=== PATIENT | male | born 1950 | race Caucasian/White ===

== ENCOUNTER → 2023-10-24 09:12 | Outpatient (BNVA) | payer MEDICARE, OTHER, SELFPAY | PROVIDERS: PCP Nurse Practitioner; Visit Provider Nurse Practitioner Family | DX: L57.0 Actinic keratosis (principal); L98.1 Factitial dermatitis; L81.0 Postinflammatory hyperpigmentation; L81.4 Other melanin hyperpigmentation; Z85.828 Personal history of other malignant neoplasm of skin | CPT/HCPCS: 17000; 99203 ==

== ENCOUNTER → 2023-10-31 08:26 | Outpatient (BNVA) | payer MEDICARE, OTHER, SELFPAY | PROVIDERS: PCP Nurse Practitioner; Visit Provider Physician Assistant | DX: M19.012 Primary osteoarthritis, left shoulder; M19.011 Primary osteoarthritis, right shoulder; M75.42 Impingement syndrome of left shoulder; M75.41 Impingement syndrome of right shoulder | CPT/HCPCS: 20610; 73030; 99203; J3301 ==

== ENCOUNTER → 2024-04-17 08:48 | Outpatient (BNVA) | payer MEDICARE, OTHER, SELFPAY | PROVIDERS: PCP Nurse Practitioner; Visit Provider Physician Assistant | DX: M75.41 Impingement syndrome of right shoulder (principal); M75.42 Impingement syndrome of left shoulder; M19.011 Primary osteoarthritis, right shoulder; M19.012 Primary osteoarthritis, left shoulder | CPT/HCPCS: 20610; 73030; 99213; J3301 ==

== ENCOUNTER → 2024-07-14 09:16 | Outpatient (BNVA) | payer MEDICARE, OTHER, SELFPAY | PROVIDERS: PCP Nurse Practitioner; Visit Provider Nurse Practitioner | DX: E29.1 Testicular hypofunction (principal) | CPT/HCPCS: 84403 ==

== ENCOUNTER → 2024-07-17 08:41 | Outpatient (BNVA) | payer MEDICARE, OTHER, SELFPAY | PROVIDERS: PCP Nurse Practitioner; Visit Provider Nurse Practitioner | DX: E29.1 Testicular hypofunction (principal); Z76.89 Persons encountering health services in other specified circumstances | CPT/HCPCS: 84402 ==

== ENCOUNTER → 2024-07-21 09:24 | Outpatient (BNVA) | payer MEDICARE, OTHER, SELFPAY | PROVIDERS: PCP Nurse Practitioner; Visit Provider Student in an Organized Health Care Education/Training Program | DX: M19.011 Primary osteoarthritis, right shoulder (principal); M19.012 Primary osteoarthritis, left shoulder | CPT/HCPCS: 99214 ==

== ENCOUNTER → 2024-08-07 08:38 | Outpatient (BNVA) | payer MEDICARE, OTHER, SELFPAY | PROVIDERS: PCP Nurse Practitioner; Visit Provider Student in an Organized Health Care Education/Training Program | DX: M75.41 Impingement syndrome of right shoulder (principal); M75.42 Impingement syndrome of left shoulder; M19.011 Primary osteoarthritis, right shoulder; M19.012 Primary osteoarthritis, left shoulder | CPT/HCPCS: 20610; 77002; J3301; J9999 ==

== ENCOUNTER → 2024-09-17 15:01 | Outpatient (BNVA) | payer MEDICARE, OTHER, SELFPAY | PROVIDERS: PCP Nurse Practitioner; Visit Provider Nurse Practitioner | DX: I10 Essential (primary) hypertension (principal); E11.9 Type 2 diabetes mellitus without complications | CPT/HCPCS: 80053; 80061; 83036; 85025 ==

== ENCOUNTER → 2024-10-23 09:07 | Outpatient (BNVA) | payer MEDICARE, OTHER, SELFPAY | PROVIDERS: PCP Nurse Practitioner; Visit Provider Nurse Practitioner Family | DX: L82.1 Other seborrheic keratosis (principal); L81.4 Other melanin hyperpigmentation; D18.01 Hemangioma of skin and subcutaneous tissue; L81.0 Postinflammatory hyperpigmentation; Z08 Encounter for follow-up examination after completed treatment for malignant neoplasm; Z85.828 Personal history of other malignant neoplasm of skin; L57.0 Actinic keratosis | CPT/HCPCS: 17000; 99213 ==

== ENCOUNTER → 2024-11-10 10:22 | Outpatient (BNVA) | payer MEDICARE, OTHER, SELFPAY | PROVIDERS: PCP Nurse Practitioner; Visit Provider Student in an Organized Health Care Education/Training Program | DX: M19.011 Primary osteoarthritis, right shoulder (principal); M19.012 Primary osteoarthritis, left shoulder; M75.41 Impingement syndrome of right shoulder; M75.42 Impingement syndrome of left shoulder | CPT/HCPCS: 99213 ==

== ENCOUNTER 2024-11-13 08:47 | Outpatient (CLI) | payer MEDICARE, OTHER, SELFPAY ==
--- NOTE | 2024-11-13 09:30 | MR_ITS ---
WS: [id number] MRI RIGHT SHOULDER NONCONTRAST TECHNIQUE: Sagittal T2, coronal T1, T2 and proton density imaging. Axial gradient PDE imaging. CLINICAL INFORMATION: eval rotator cuff COMPARISON: None. FINDINGS: Advanced arthritis AC joint. Fluid and edema at the AC joint. Subacromial space preserved. Diffuse degenerative edema in the humeral head with subchondral cystic changes at the greater tuberosity. Small joint effusion. Subcoracoid effusion. Diffuse tendinopathy supraspinatus. Diffuse marked thickening with tendinopathy involving the intra-articular biceps tendon. Tendinopathy infraspinatus which appears intact. Teres minor appears intact. Tendinopathy subscapularis tendon which appears intact. Biceps tendon intact within the bicipital groove with medial subluxation along the proximal bicipital groove. Advanced joint space narrowing glenohumeral articulation with hypertrophic changes. Hypertrophic changes along the humeral neck. MR/MR shoulder RT wo con* [id number] IMPRESSION: 1. Marked tendinopathy involving the supraspinatus which appears intact. Tendi nopathy infraspinatus and subscapularis tendons. 2. Diffuse thickening with tendinopathy involving the intra-articular biceps t endon. 3. Biceps tendon appears intact within the bicipital groove with medial sublux ation along the proximal biceps tendon. 4. Advanced degenerative narrowing glenohumeral articulation. 5. Small joint effusion with fluid along the biceps tendon sheath and subcorac oid bursa. 6. Diffuse edema within the humeral head.
== END 2024-11-13 08:48 | disposition home or self-care (01) ==
LOC: RAD 08:48
PROVIDERS: PCP Nurse Practitioner; Visit Provider Student in an Organized Health Care Education/Training Program
DX: M75.41 Impingement syndrome of right shoulder (principal); M19.011 Primary osteoarthritis, right shoulder; M19.012 Primary osteoarthritis, left shoulder; M67.813 Other specified disorders of tendon, right shoulder
CPT/HCPCS: 73221

== ENCOUNTER 2024-11-26 09:16 | Outpatient (CLI) | payer MEDICARE, OTHER, SELFPAY ==
--- NOTE | 2024-11-26 09:22 | MR_ITS ---
WS: [id number] MRI LEFT SHOULDER NONCONTRAST TECHNIQUE: Sagittal T2, coronal T1, T2 and proton density imaging. Axial gradient PDE imaging. CLINICAL INFORMATION: eval rotator cuff FINDINGS: Advanced arthritis AC joint with associated fluid and edema. Subchondral cystic change involving the distal clavicle and acromion. Osseous fragmentation of the acromion may be due to chronic osteoarthritis, prior injury or prior surgery. Subchondral cystic change greater tuberosity with intraosseous cyst measuring 2.1 x 2.2 cm. Small amount of subacromial subdeltoid fluid. Fluid in the subcoracoid bursa. Calcified loose bodies at the supraspinatus insertion. Chronic thinning of the supraspinatus with tendinopathy. Tendinopathy infraspinatus. Normal teres minor. Tendinopathy subscapularis tendon. Intra-articular biceps tendon appears intact. Diffuse increased T2 signal abnormality involving the intra-articular biceps tendon compatible with tendinopathy. Advanced degenerative narrowing of the glenohumeral articulation with hypertrophic spurring about the glenoid and humeral neck. Hill-Sachs type deformity at the level of the coracoid. MR/MR shoulder LT wo con* [id number] IMPRESSION: 1. Advanced degenerative arthritis AC joint with fragmentation of the acromion . Mild narrowing of the subacromial space with slight impingement on the supras pinatus. 2. Hill-Sachs deformity with advanced subchondral cystic change involving the greater tuberosity with intraosseous humeral head cyst measuring 2.1 x 2.0 cm. 3. Calcified loose bodies at the supraspinatus insertion. Tendinopathy suprasp inatus and infraspinatus. 4. Tendinopathy subscapularis tendon. 5. Biceps tendon intact in the bicipital groove. 6. Marked tendinopathy intra-articular biceps tendon. 7. Advanced degenerative narrowing of the glenohumeral articulation with hyper trophic spurring. 8. Small joint and subcoracoid effusion.
== END 2024-11-26 09:17 | disposition home or self-care (01) ==
LOC: RAD 09:17
PROVIDERS: PCP Nurse Practitioner; Visit Provider Student in an Organized Health Care Education/Training Program
DX: M75.42 Impingement syndrome of left shoulder (principal); M19.012 Primary osteoarthritis, left shoulder; M67.812 Other specified disorders of synovium, left shoulder; M77.8 Other enthesopathies, not elsewhere classified
CPT/HCPCS: 73221

== ENCOUNTER → 2024-12-16 08:52 | Outpatient (BNVA) | payer MEDICARE, OTHER, SELFPAY | PROVIDERS: PCP Nurse Practitioner; Visit Provider Student in an Organized Health Care Education/Training Program | DX: M19.011 Primary osteoarthritis, right shoulder (principal); M19.012 Primary osteoarthritis, left shoulder | CPT/HCPCS: 99214 ==

== ENCOUNTER 2024-12-29 09:47 | Outpatient (CLI) | payer MEDICARE, OTHER, SELFPAY ==
--- NOTE | 2024-12-29 10:00 | CTR_ITS ---
PROCEDURE INFORMATION: Exam: CT Right Upper Extremity Without Contrast, Shoulder Exam date and time: 12/29/2024 10:22 AM Age: 74 years old Clinical indication: Pain; Prior surgery; Surgery date: 6+ months; Surgery type: Right shoulder; Additional info: Right reverse total shoulder arthroplasty, CT for surgical planning TECHNIQUE: Imaging protocol: Computed tomography of the right upper extremity without contrast. Exam focused on the shoulder. Radiation optimization: All CT scans at this facility use at least one of these dose optimization techniques: automated exposure control; mA and/or kV adjustment per patient size (includes targeted exams where dose is matched to clinical indication); or iterative reconstruction. COMPARISON: MR shoulder RT wo con* [id number] 11/13/2024 9:26 AM RADIATION DOSE METRICS: Total DLP (mGy-cm): 528.5 FINDINGS: Bones/joints: Glenohumeral joint demonstrates severe joint space loss, subchondral sclerosis, moderate marginal osteophytes and remodeling of the glenoid fossa and humeral head. Humeral head is flattened. Subcortical and subchondral cysts involve the superolateral humeral head and greater tuberosity . Small sclerotic densities noted in the humeral head and humeral shaft favor bone islands. There is a truncated appearance to the acromion, suggesting prior acromioplasty. The AC joint is widened to 9 mm, indicating chronic ligament degeneration. No acute fracture or dislocation. Joint fluid extends along the bicipital tendon. Loculated subcoracoid bursal collections are again noted. Previous acromioplasty. Soft tissues: Normal. CT/CT shoulder RT wo con* [id number] IMPRESSION: 1. Severe glenohumeral degenerative changes. 2. Moderate acromioclavicular degenerative changes. 3. Glenohumeral joint effusion with loculated subcoracoid components.
== END 2024-12-29 09:48 | disposition home or self-care (01) ==
LOC: RAD 09:49
PROVIDERS: PCP Nurse Practitioner; Visit Provider Student in an Organized Health Care Education/Training Program
DX: M19.011 Primary osteoarthritis, right shoulder (principal); M25.411 Effusion, right shoulder; M25.711 Osteophyte, right shoulder
CPT/HCPCS: 73200

== ENCOUNTER → 2025-01-07 15:26 | Outpatient (BNVA) | payer MEDICARE, OTHER, SELFPAY | PROVIDERS: PCP Nurse Practitioner; Visit Provider Family Medicine | DX: Z01.818 Encounter for other preprocedural examination (principal); M19.011 Primary osteoarthritis, right shoulder; M25.411 Effusion, right shoulder; I10 Essential (primary) hypertension; E11.9 Type 2 diabetes mellitus without complications; Z79.84 Long term (current) use of oral hypoglycemic drugs; E78.5 Hyperlipidemia, unspecified; N40.0 Benign prostatic hyperplasia without lower urinary tract symptoms | CPT/HCPCS: 80053; 83036; 85025 ==

== ENCOUNTER 2025-01-28 14:19 | Observation (INO) | payer MEDICARE, OTHER, SELFPAY ==
[2025-01-28] VITALS (35 sets, daily range): BP systolic 129–171; BP diastolic 30–101; PULSE 67–102; RESP 11–20; TEMP 36.4–36.9; O2SAT 89–97; BMI 29.5
--- NOTE | 2025-01-28 06:16 | ANES.PREANE2 ---
Pre-Anesthetic Assessment Height/Weight: Height 6 ft 2 in Temp Pulse Resp BP Pulse Ox O2 Del Method 97.5 F L 73 18 165/101 96 Room Air 01/28/25 06:12 01/28/25 06:12 01/28/25 06:12 01/28/25 06:12 01/28/25 06:12 01/28/25 06:12 Preop Diagnosis: Shoulder arthritis Operation Date: 01/28/25 07:00 Proposed Procedures p RIGHT Total Reverse Shoulder Arthroplasty(Right) - Eder Elliott, DO Was Beta Tabatha taken within 24 hours: N/A Was Clonidine taken within 24 hours: N/A Last intake: Intake Last Liquid Date 01/27/25 Last Liquid Time 20:00 Last Solid Date 01/27/25 Last Solid Time 20:00 Social No alcohol and No tobacco Exam alert, oriented x 3, clear to auscultation bilaterally and regular rate & rhythm Airway Submandibular: within normal limits Cervical ROM: within normal limits Mallampati: Class III Comments: Comments: Patient has all implanted teeth Anesthetic Plan ASA status: 3 Anesthesia: General and Regional (specify below) Other: No prior issues with anesthesia NPO since yesterday evening History of type 2 diabetes, well-controlled. No insulin Hypertension on amlodipine. Taken yesterday. Preop BP 165/101 Recent labs reviewed acceptable for procedure today Plan for GETA with peripheral nerve block Medications/Allergies Home Medications ?Medication ?Instructions ?Recorded ?Confirmed ?Last Taken ?Type morphine 15 mg immediate release 15 mg PO BID PRN Pain 09/10/23 01/27/25 01/26/25 History tablet hydrocodone 10 mg-acetaminophen 1 tab PO Q6H PRN pain 5 days #20 10/31/23 01/28/25 01/28/25 02:30 Rx 325 mg tablet tabs triamcinolone acetonide 0.1 % 1 applic topical BID #30 grams 09/17/24 01/20/25 Unknown Rx topical cream testosterone cypionate 200 mg/mL 200 mg IM Q14D #2 mL 11/04/24 01/20/25 Unknown Rx intramuscular oil venlafaxine 75 mg capsule,extended See Rx Instructions .Route 12/01/24 01/20/25 Unknown Rx release 24 hr .COMPLEX #90 caps rosuvastatin 10 mg tablet 10 mg PO DAILY #90 tabs 12/30/24 01/27/25 01/27/25 Rx amlodipine 5 mg tablet 5 mg PO DAILY #30 tabs 01/20/25 01/27/25 01/27/25 Rx empagliflozin 10 mg tablet 10 mg PO DAILY 01/27/25 01/27/25 01/27/25 History (Jardiance) metformin 1,000 mg tablet 1,000 mg PO BID 01/27/25 01/27/25 01/27/25 History pantoprazole 40 mg tablet,delayed 40 mg PO PRN PRN Heartburn 01/27/25 01/27/25 01/26/25 History release tamsulosin 0.4 mg capsule 0.4 mg PO BID 01/27/25 01/27/25 01/27/25 History Allergies Allergy/AdvReac Type Severity Reaction Status Date / Time lisinopril AdvReac Mild ADR-Cough Verified 01/28/25 06:07 [facility] Anesthesia Social History Smoking and tobacco/nicotine status: never used tobacco/nicotine Data Anesthesia 01/28/25 06:20 01/28/25 06:20
[2025-01-28 06:35] LABS: Hematocrit 54.0 % (37-53); Hemoglobin 18.40 g/dL (11.27-16.99); Mean Corpuscular HGB Conc 34.1 g/dL (30-55); Mean Corpuscular Hemoglobin 32.7 pg (27-33); Mean Corpuscular Volume 96.1 fl (82-101); Nucleated Red Blood Cells % 0 %; Platelet Count 151 10^3/cmm (157-399); Red Blood Count 5.62 10^6/uL (3.85-5.65); White Blood Count 9.83 10^3/uL (3.29-11.43)
[2025-01-28 06:51] LABS: Anion Gap 14.8 (5-19); Blood Urea Nitrogen 11 mg/dL (8-23); Calcium 8.9 mg/dL (8.5-10.5); Carbon Dioxide 26 mmol/L (22-29); Chloride 101 mmol/L (98-107); Creatinine Clr Calc Pharmacy 102.7478; Glucose 146 mg/dL (65-115); Osmolality Calculated 286 mOsm/kg (285-295); Potassium 4.8 mmol/L (3.5-5.1); Sodium 137 mmol/L (136-145)
[2025-01-28] MEDS: acetaminophen 1,000 MG/100 ML PIGGYBACK 400 MG IV (06:52)
--- NOTE | 2025-01-28 06:54 | W.PM.OPSFHP ---
Same Day Surgery H&P Indication for Procedure/HPI DATE OF PROCEDURE: January 28, 2025 CHIEF COMPLAINT/INDICATIONFOR SURGICAL PROCEDURE: Right shoulder degenerative joint disease PREOP DIAGNOSIS: Right shoulder degenerative joint disease PLANNED PROCEDURE: Operation Date: 01/28/25 07:00 Proposed Procedures p RIGHT Total Reverse Shoulder Arthroplasty(Right) - Eder Elliott, DO Medications/Allergies* Home Medications ?Medication ?Instructions ?Recorded ?Confirmed ?Type morphine 15 mg immediate release 15 mg PO BID PRN Pain 09/10/23 01/27/25 History tablet empagliflozin 10 mg tablet 10 mg PO DAILY 01/27/25 01/27/25 History (Jardiance) metformin 1,000 mg tablet 1,000 mg PO BID 01/27/25 01/27/25 History pantoprazole 40 mg tablet,delayed 40 mg PO PRN PRN Heartburn 01/27/25 01/27/25 History release tamsulosin 0.4 mg capsule 0.4 mg PO BID 01/27/25 01/27/25 History Allergies/Adverse Reactions Allergy/AdvReac Type Severity Reaction Status Date / Time lisinopril AdvReac Mild ADR-Cough Verified 01/28/25 06:07 Current Medications: Generic Name Dose Route Start Last Admin Trade Name Freq PRN Reason Stop Dose Admin Sodium Chloride 1,000 mls @ 30 mls/hr 01/28/25 06:15 01/28/25 06:52 Sodium Chloride 0.9% IV 01/29/25 06:14 30 mls/hr .Q24H DELLA Administration Pertinent History/Comorbid Conditions* Social History Smoking and tobacco/nicotine status: never used tobacco/nicotine Pertinent Exam Findings alert, oriented x 3, operative site marked and procedure specific exam findings Please refer to anesthesia preoperative evaluation for heart and lung examination Please refer to detailed orthopedic examination on 12/16/2024 listed below: Right Shoulder -Crepitus with range of motion -Range of motion Limited range of motion 0 to about 90 degrees -Rotator cuff strength internal and external weakness noted. -Jobes test-positive -Speed's Test-positive -O'Briens test-positive -Eaton impingement-positive -Empty can test positive with weakness -Radial pulse 2+, normal cap refill under 2 seconds and patient can wiggle fingers. -Sensation to hand intact Left Shoulder -Crepitus with range of motion -Range of motion full active range of motion. -Rotator cuff strength-internal and external intact 5 out of 5 strength -Jobes test-positive -Speed's Test-positive -O'Briens test-positive -Eaton impingement-positive -Empty can test-positive -Radial pulse 2+, normal cap refill under 2 seconds and patient can wiggle fingers. -Sensation to hand intact Recommendations Risks and benefits of procedure reviewed and Patient/family agree to proceed Surgery/Procedure today Other Plans: Patient at this point in time has severe right shoulder degenerative joint disease and here to proceed with a right reverse total shoulder arthroplasty. Patient understands the ins and outs of procedure the risk benefits complication alternatives surgical nonsurgical treatment options. Understanding risk of surgery patient elects proceed with surgical intervention. All questions been answered at this time. Will proceed to the OR today is cleared the preoperative clearance process. No changes to health since last visit. All questions answered. Coding Level of Care Code Acute Code for Chg Fwd
[2025-01-28] MEDS: ceFAZolin 2,000 MG in sodium chloride 0.9% (plus) 50 ML 100 MG IV ×3 (07:05→21:46)
[2025-01-28] MEDS: tranexamic acid 1,000 mg/10mL SDV 1000 MG IV (07:35)
--- NOTE | 2025-01-28 08:11 | ANES.PROC ---
Anesthesia Procedures Procedure/Date: 01/28/25 Right interscalene peripheral nerve block for postoperative pain control Nerve Block ^: Nerve Block 1: Main Anesthesia: other (200 mcg fentanyl) Time Out Performed: Yes Consent: requested by attending/covering physician and from patient Laterality: Right Nerve block location: interscalene Anesthesia monitors applied: pulse oximetry, EKG, BP cuff and oxygen Nerve block position: supine Anesthetic Used: ropivicaine 0.5% Amount of anesthesia used (mL): 30 Ultrasound used to: recognize landmarks Nerve Stimulator Used?: Yes Interscalene/Femoral BLK: other needle (pjunk 4inch) Injection: neg aspiration of heme Patient Tolerated Procedure: well Complications: none Additional Comments: Decadron 4 mg added to block
--- NOTE | 2025-01-28 10:19 | XRR_ITS ---
PROCEDURE INFORMATION: Exam: XR Right Shoulder Exam date and time: 01/28/2025 11:17 AM Age: 74 years old Clinical indication: Condition or disease; Other: Post op; Additional info: S/P R reverse tsa TECHNIQUE: Imaging protocol: Radiologic exam of the right shoulder. Views: 2 or more views. COMPARISON: CT shoulder RT wo con* [id number] 12/29/2024 10:22 AM FINDINGS: Bones/joints: Interval reverse shoulder arthroplasty. Hardware appears intact without complication. Anatomic alignment. No periprosthetic fracture. Soft tissues: Expected subcutaneous gas and edema from postsurgical changes. XR/XR shoulder RT min 2V* [id number] IMPRESSION: Right reverse total shoulder arthroplasty without apparent complication.
--- NOTE | 2025-01-28 10:19 | P.OP_ITS ---
Operative Report Date of procedure: January 28, 2025 Surgeon: Eder Elliott DO Shellfish Checker: Abhishek Elliott PA-C: PA was necessary for assistance in this case with shoulder positioning to execute the procedure, assistance with instrumentation, as well as implant fixation when necessary, assist with wound closure and dressing application. Procedure: Preop Diagnosis?Right shoulder shoulder degenerative joint disease Post-op diagnosis: same Post-op diagnosis:? Same Procedure done:? Right?reverse?total shoulder arthroplasty Implants:? [employer]?reverse?total shoulder arthroplasty comprehensive system Size 17 mm micro humeral stem 40 mm glenosphere diameter C offset 2.5mm Glenosphere mini baseplate Central screw?6.5 mm by 25 mm(20mm in and out as didnt have purchase) Fixed locking screws (25 mm, 20 mm, 15 mm, 15 mm) Standard mini humeral tray with +5 mm polyethylene thickness Surgeon:? Eder Elliott DO Estimated blood loss:? 75 mL IV fluids:? 1200 mL Urine output:? 400 mL Complications:? None Findings:? See operative report narrative Condition: stable Disposition: floor Brief History:? Pt is a pleasant 74-year-old female who is worked up in the outpatient setting for chronic Right shoulder arthrtitis.? Pt has failed conservative treatment and? was interested in further treatment options we talked about? continued nonoperative versus operative intervention given pt age, Glenohumeral joint arthritis and rotator cuff tendinopathy on MRI would recommend a Right?reverse?total shoulder arthroplasty.? Pt has been medically optimized and cleared for surgery by the anesthesia department.? Through shared decision- making pt like to proceed with a Right?reverse?total shoulder arthroplasty.? All questions been answered at this time once again pt understands the risk benefits complication alternatives the treatment option understanding risk of surgery pt agrees to proceed.? All questions answered. Procedure:? Patient seen evaluated in the preoperative holding area.? Consent was reviewed and signed with patient once again detailed out the ins and outs of the procedure.? Correct extremity was marked.? Final questions answered.? Patient was seen evaluated by Anesthesia Department once cleared for surgery pt was taken back to the operative suite.? pt was placed in supine position all bony prominences well-padded patient was appropriate secured to the bed pt underwent anesthesia per the anesthesia department once appropriately anesthetized he was then subsequently set into a beachchair position.? Once we confirmed appropriate positioning we then subsequently prepped and draped the Right upper extremity in standard orthopedic fashion.? Final timeout performed.? Patient received appropriate preoperative antibiotics. Standard deltopectoral approach was then made just lateral to the coracoid.? I utilized electrocautery to maintain exact hemostasis throughout my dissection.? I subsequently identified the cephalic vein dissected this out carefully and this was taken medially with Cobell retractor and I entered the deltopectoral interval.? Next I released the clavipectoral fascia and at this point time identified the bicep tendon.? This was then isolated and I opened up the bicipital groove within the interval taken this all the way to its insertion site.? Long head of bicep tendon was released from its origin. Of note patient had attenuation of subscapularis tendon as well as tearing of rotator cuff.? I then subsequently performed a subscapularis remanent peel off of the lesser tuberosity this was tagged with 0 Vicryl suture and utilized for manipulation throughout the case.? I then subsequently performed a complete release in standard fashion with care to stay directly onto bone and protecting axillary nerve throughout the case.? Once standard residual release was performed I then protected the entirety of the humeral head and subsequently began with my humeral stem prep. I then subsequently performed standard releases circumferentially around the humeral head staying on bone. This allowed for me to place my cutting guide in place of 20 degrees retroversion was then placed with my cutting guide pinned into appropriate position and making sure my rotation and version was appropriate once satisfactory. Blunt Hohmann's were placed circumferentially around the humeral head to protect while utilizing saw on the humeral head. An oscillating saw was then used to perform my humeral head resection.? This was then subsequently removed.? I then sequentially broached up to appropriate size which was a size 17 mm micro humeral stem with care to once again maintained my appropriate version.? Once I was satisfied with this I then placed the metal, and left the stem in place to maintain appropriate integrity of the humeral head while performing work on the glenoid.?? Next I then placed appropriate retraction posterior inferior posterior superior as well as anterior.? I had excellent visualization of the glenoid at this point time gayatri my appropriate position.? I utilized electrocautery and remove the entirety of the labrum so I had full visualization of the glenoid.? I then utilized the [employer] comprehensive targeting guide within 10 degree tilt.? Central guidepin was then inserted and confirmed to be in appropriate position confirmed with preop CT plan. once satisfied with this placement I then introduced my reamer and then opened up our porous glenosphere mini baseplate this was impacted in appropriate position and rotation next I then subsequently drilled and measured my central screw, this was measured between 20 and 25 I trialed a 20 mm screw which was minimal purchase then subsequently trialed a 25 and had excellent central screw purchase. This had excellent fixation and purchase.? At this point time I are removed any small residual osteophytes inferiorly and at this point then I subsequently drilled measured and placed 4 locking screws circumferentially around the mini baseplate size screws were 25 mm, 20 mm, 15 mm, 15 mm.? These all had excellent fixation and I satisfied with baseplate .? Next I then opened up our glenosphere 40 diameter set this to the appropriate offset C giving us roughly 2.5 mm of offset inferiorly this was then impacted and had excellent fixation.? Utilize a tonsil closed by hand and we had appropriate fixation of the glenosphere. ?This was then subsequently removed and then I subsequently placed the appropriate trial humeral tray which was trialed with a standard offset onto my trial 17 mm humeral stem this was subsequently reduced.? Shoulder had excellent range of motion and stability had still little bit of play as result I then subsequently trialed up to a +5 mm thickness and this had satisfactory range of motion and excellent stability and appropriately tension.? This was determined to be my final implant.? I then subsequently redislocated the shoulder.? I then subsequently removed the trial implantations of the humerus.? Final implants were called and open for of a size 17 micro humeral stem as well as a +5 polyethylene and mini humeral tray.? This was opened and set up appropriately on the back table.? I then subsequently impacted the micro humeral stem size 17 and appropriate position which was exact as our trial implantation once again maintaining our appropriate version that was preset and marked and then next I subsequently dried the trunnion and impacted the appropriate humeral tray with +5 mm thickness poly.? This was then subsequently reduced and had excellent fixation range of motion and stability with appropriate tensioning.? No evidence of instability was noted.? I then subsequently opened Pulsavac and thoroughly irrigated the incision with 3 L of normal saline.? I then subsequently placed a gram of vancomycin powder for infection prophylaxis.? I then subsequently closed the subcutaneous layer with 0 and 2-0 STRATAFIX a running 3-0 STRATAFIX was then performed of the skin edges and then reinforce the skin edges with perineo glue. A NITA dressing was then applied.? Sling applied. Patient was then awakened from anesthesia and taken to PACU in stable condition.? Patient tolerated procedure without any complications. Disposition: Patient taken to PACU in stable condition recovering well will be admitted to the floor postoperatively internal medicine will be on board for medical management.? Patient will be nonweightbearing to the Right shoulder.? Sling on in place.? Patient will receive appropriate postoperative pain medication DVT prophylaxis on the floor.? Will receive appropriate discharge structure as well as pain medication DVT prophylaxis.? We will work with PT/OT.? Patient to follow-up with me in the office in 2 weeks.
--- NOTE | 2025-01-28 10:20 | P.BOP_ITS ---
Date of Procedure: [January 28, 2025] Surgeon: [Dr. Lexi DO] Greenhouse Florist(s): [Abhishek Elliott PA-C] Procedure(s) performed: [Right reverse shoulder total arthroplasty.] Findings of the procedure(s): [Right shoulder glenohumeral joint arthritis. Procedure went well and is planned] Estimated blood loss: [75 mL] Specimen(s) removed: [Humeral head shavings] Post-operative diagnosis: [Right shoulder glenohumeral joint arthritis]
--- NOTE | 2025-01-28 10:36 | PM.PACU ---
PACU note Narrative: Patient is 74-year-old male that just underwent right reverse total shoulder arthroplasty. Patient transferred to PACU in stable condition. Pain is well controlled. shoulder Dressing on , dry and in place. Patient's operative arm is in a shoulder immobilizer. Patient is awake and alert and able to respond to my questions accordingly. Patient's fingers are warm with good perfusion. Normal cap refill under 2 seconds. Radial pulse 2+. unable to assess further range of motion in arm due to sling. Sensation hand intact Exam: awake Disposition: admitted
--- NOTE | 2025-01-28 10:52 | XRR_ITS ---
PROCEDURE INFORMATION: Exam: XR Chest Exam date and time: 01/28/2025 11:00 AM Age: 74 years old Clinical indication: Dyspnea; Additional info: Hypoxia TECHNIQUE: Imaging protocol: Radiologic exam of the chest. Views: 1 view. COMPARISON: CT shoulder RT wo con* [id number] 12/29/2024 10:22 AM FINDINGS: Lungs: Streaky bilateral perihilar opacities and bibasilar opacities. Pleural spaces: Unremarkable. No pleural effusion. No pneumothorax. Heart/Mediastinum: Unremarkable. No cardiomegaly. Vasculature: Atherosclerotic aortic calcifications. Diaphragm: Asymmetric elevation of the right hemidiaphragm. Bones/joints: Partially imaged right reverse shoulder arthroplasty with associated subcutaneous gas from recent surgery. XR/XR chest 1V portable [id number] IMPRESSION: Bilateral pulmonary opacities could represent atelectasis, though infiltrate is not excluded in the correct clinical setting.
--- NOTE | 2025-01-28 10:52 | PM.CONSULT ---
Providers/Reason For Consult Consulting Physician/Specialty*: Hospitalist Reason for Consult*: Diabetes Attending Physician: Eder Elliott DO Primary Care Provider: MIHAI Mendoza History of Present Illness History of Present Illness Vinicio Zepeda is a 74 year old man with history of diabetes mellitus (on oral hypoglycemics), hyperlipidemia, hypertension, and degenerative shoulder disease presents in the post-anesthesia care unit (PACU) following total shoulder replacement performed after a nerve block. Reports feeling pretty good after surgery. Denies shortness of breath, chest pain/pressure, leg swelling, orthopnea, recent fevers, chills, cough, sputum production, nausea, or vomiting. Nursing staff report oxygen saturation drops to 79% when oxygen is removed; currently on 3 L nasal cannula. Notes burning with urination after catheter removal; denies prior dysuria before surgery. Lives with spouse. Denies tobacco use. Denies history of asthma, chronic obstructive pulmonary disease (COPD), or obstructive sleep apnea. Denies prior myocardial infarction, heart failure, or coronary stents. For diabetes, does not check glucose at home and states he does not think his value (interpreted as hemoglobin A1c) is seven. States blood pressure is usually good and was recently switched from lisinopril due to cough, believes amlodipine may be the replacement. Review of Systems Const: Denies: fever(s), chills, body aches or malaise ENMT: Denies: throat pain Card: Denies: chest pain, edema, pre-syncope or dyspnea on exertion Resp: Denies: dyspnea, productive cough, change in phlegm color or hemoptysis GI: Denies: abdominal pain, nausea, vomiting, diarrhea, constipation, hematochezia or melena : Denies: flank pain, difficulty urinating, urinary frequency or hematuria Musc: Denies: back pain, joint swelling or joint redness Skin/Breast: Denies: rash or new lesions Neuro: Denies: headache(s) or confusion Medications/Allergies Home Medications ?Medication ?Instructions ?Recorded ?Confirmed ?Last Taken ?Type morphine 15 mg immediate release 15 mg PO BID PRN Pain 09/10/23 01/27/25 01/26/25 History tablet hydrocodone 10 mg-acetaminophen 1 tab PO Q6H PRN pain 5 days #20 10/31/23 01/28/25 01/28/25 02:30 Rx 325 mg tablet tabs triamcinolone acetonide 0.1 % 1 applic topical BID #30 grams 09/17/24 01/20/25 Unknown Rx topical cream testosterone cypionate 200 mg/mL 200 mg IM Q14D #2 mL 11/04/24 01/20/25 Unknown Rx intramuscular oil venlafaxine 75 mg capsule,extended See Rx Instructions .Route 12/01/24 01/20/25 Unknown Rx release 24 hr .COMPLEX #90 caps rosuvastatin 10 mg tablet 10 mg PO DAILY #90 tabs 12/30/24 01/27/25 01/27/25 Rx amlodipine 5 mg tablet 5 mg PO DAILY #30 tabs 01/20/25 01/27/25 01/27/25 Rx empagliflozin 10 mg tablet 10 mg PO DAILY 01/27/25 01/27/25 01/27/25 History (Jardiance) metformin 1,000 mg tablet 1,000 mg PO BID 01/27/25 01/27/25 01/27/25 History pantoprazole 40 mg tablet,delayed 40 mg PO PRN PRN Heartburn 01/27/25 01/27/25 01/26/25 History release tamsulosin 0.4 mg capsule 0.4 mg PO BID 01/27/25 01/27/25 01/27/25 History Allergies Allergy/AdvReac Type Severity Reaction Status Date / Time lisinopril AdvReac Mild ADR-Cough Verified 01/28/25 06:07 Current Medications Generic Name Dose Route Start Last Admin Trade Name Freq PRN Reason Stop Dose Admin Tranexamic Acid 1,000 mg in 100 mls @ 600 mls/hr 01/28/25 14:02 01/28/25 08:55 Tranexamic Acid IV 01/28/25 14:11 Not Given ONCE ONE Sodium Chloride 1,000 mls @ 30 mls/hr 01/28/25 06:15 01/28/25 08:22 Sodium Chloride 0.9% IV 01/29/25 06:14 Infused .Q24H DELLA Infusion PFSH Acute PFSH: Medical History (Updated 01/28/25 @ 11:26 by Momo Cornelius MD) Rotator cuff impingement syndrome of right shoulder Rotator cuff impingement syndrome of left shoulder Osteoarthritis of shoulders, bilateral Diabetes Essential hypertension Hyperlipidemia Surgical History (Updated 01/28/25 @ 11:24 by Momo Cornelius MD) H/O total hip arthroplasty S/P total knee arthroplasty Social History (Updated 01/28/25 @ 11:16 by Momo Cornelius MD) Smoking and tobacco/nicotine status: never used tobacco/nicotine Alcohol intake: never Lives independently: Yes Household members: spouse Marital status: Vitals/I&O/Wt Last Vital Signs Temp 98.4 F 01/28/25 10:41 Pulse 67 01/28/25 10:41 Resp 20 H 01/28/25 10:41 BP 155/87 01/28/25 10:41 Pulse Ox 91 01/28/25 10:41 O2 Del Method Nasal Cannula 01/28/25 10:41 O2 Flow Rate 2 01/28/25 10:41 01/27/25 01/28/25 01/28/25 22:59 06:59 14:59 Intake Total 1350 / 1350 Output Total 475 / 475 Balance 875 / 875 Weight last 48 hrs Weight 104.326 kg Physical Exam Const: COMMON NORMALS: patient oriented x3 and alert GENERAL APPEARANCE: cooperative ORIENTATION/CONSCIOUSNESS: Yes awake HENMT: COMMON NORMALS: oropharynx normal Neck/C-Spine: COMMON NORMALS: no JVD Resp: COMMON NORMALS: normal respiratory effort and clear to auscultation bilaterally AUSCULTATION: clear to auscultation bilaterally Cardio: COMMON NORMALS: no JVD, regular rhythm, S1 normal heart sound present, S2 normal heart sound present and No murmurs present (Cardio) RHYTHM: regular rhythm HEART SOUNDS: S1 normal heart sound present and S2 normal heart sound present GI: COMMON NORMALS: Normal to inspection, nondistended, normoactive bowel sounds present, Soft to palpation and non-tender PALPATION: Yes Soft to palpation Extremity: COMMON NORMALS: no joint enlargement and no pedal edema NARRATIVE EXTREMITY EXAM: Right shoulder immobilizer. Mini drain in place. Neuro: COMMON NORMALS: patient oriented x3 and moves all extremities SENSORIUM/ORIENTATION: Yes alert Skin: COMMON NORMALS: no rashes or lesions noted GENERAL SKIN EXAM: no rashes or lesions noted Urinary Catheter Management: Mazariegos: Cath Placed During This Visit: yes Urinary Catheter Date of Insertion: 01/28/25 Urinary Catheter Time of Insertion: 07:21 Data 01/28/25 06:20 01/28/25 06:20 A&P Assessment and plan 1. S/p reverse total shoulder arthroplasty: Uneventful procedure with estimated blood loss 75 mL; recovering in PACU. Discussed with orthopedic surgeon, reviewed orthopedic note, shoulder x-ray. Preop evaluation. - Reassessment with orthopedics (Dr. Weir) - Consideration for discharge home tomorrow - Continue pain control 2. Hypoxia: Hypoxia requiring supplemental oxygen : Oxygen saturation 90% on 3 L nasal cannula; drops to 79% when oxygen removed; patient denies respiratory symptoms. Reviewed vitals, CBC. Requesting chest x-ray. Reviewed chemistry. Denies any prior lung disease. Is a never smoker. Denies SARAH. Had received small bolus of fluid. Discussed possibility of microaspiration, bronchitis/pneumonitis. OR staff reporting he has been having some phlegm production, although he denies any recent respiratory issues or productive cough. - Obtain chest X-ray to evaluate for possible pneumonia or aspiration - Continue low-rate oxygen supplementation - Hold heavy fluids - Monitor oxygen saturation - Incentive spirometer 3. Diabetes: Diabetes managed with oral hypoglycemics at home; inpatient approach discussed. Reviewed A1c noted 7.1. - While in hospital, use sliding scale insulin - Consistent carbohydrate diet - Monitor [id number] glucose - Resume oral hypoglycemics at discharge 4. Dysuria: Dysuria after catheter removal : Reports burning with urination after catheter was removed; no prior dysuria before surgery. - If symptoms persist, obtain urine sample to evaluate for urinary tract infection (UTI) Plan: Hypertension : History of hypertension; lisinopril discontinued due to cough; currently on amlodipine. - Monitor blood pressures - Continue amlodipine Hyperlipidemia : On statin therapy at home. - Continue statin for hyperlipidemia (rosuvastatin) Follow-up : Post-operative planning and discharge considerations. - Extensive plan for return home tomorrow as clinically appropriate PDMP PDMP Reviewed: Not Reviewed Consult Attestations Medical Necessity Statement: Hospitalization for postoperative care after reverse right total shoulder arthroplasty. and High MDM includes amount and/or complexity of data reviewed/ordered [ previous or external records, resulted lab(s)/test(s), ordered lab(s)/test(s) and other healthcare professional discussion] as documented Diagnoses S/p reverse total shoulder arthroplasty Z96.619 Hypoxia R09.02 Diabetes E11.9 Dysuria R30.0
--- NOTE | 2025-01-28 12:14 | PC.NURSE ---
Respiratory at bedside teaching pt how to use IS. Pt oxygen requirements in up to 4L 90-93% SPO2. Anesthesia aware. Chest xray has been completed.
--- NOTE | 2025-01-28 14:30 | ANE.PACU2 ---
Inpatient post-anesthesia follow up: Airway intact: Yes Vital signs: Temperature 98.8 F Pulse Rate 82 Respiratory Rate 17 Blood Pressure 155/80 Pulse Oximetry 97 Oxygen Delivery Me thod Nasal Cannula Oxygen Flow Rate 3 Fraction of Inspir ed Oxygen Hydration adequate: Yes Nausea and vomiting: No Pain level: 1 Mental status: Baseline
[2025-01-28] MEDS: chlorhexidine gluconate 0.12% Btl 473 mL 30 ML MUCOUS MEM ×3 (15:01→21:51)
[2025-01-28] MEDS: tranexamic acid 1,000 MG/100 ML PREMIX 600 MG IV (15:02)
[2025-01-28] MEDS: oxyCODONE 5 mg IR Tab/Cap PO ×2 (15:20→20:17)
[2025-01-28] MEDS: calcium carb-vit d 600mg/400unit 1 Tablet 1 EACH PO (17:01)
[2025-01-29 02:24] VITALS: RESP 16; O2SAT 95
[2025-01-29] MEDS: oxyCODONE 5 mg IR Tab/Cap PO ×3 (02:24→12:22)
[2025-01-29 04:28] VITALS: BP 137/72; PULSE 86; RESP 17; TEMP 36.7; O2SAT 95
[2025-01-29] MEDS: calcium carb-vit d 600mg/400unit 1 Tablet 1 EACH PO (04:49)
[2025-01-29] MEDS: chlorhexidine gluconate 0.12% Btl 473 mL 30 ML MUCOUS MEM ×2 (04:49→12:24)
[2025-01-29] MEDS: multivitamin therapeutic Tablet 1 TAB PO (04:50)
[2025-01-29 06:02] LABS: Hematocrit 45.8 % (37-53); Hemoglobin 15.40 g/dL (11.27-16.99); Mean Corpuscular HGB Conc 33.6 g/dL (30-55); Mean Corpuscular Hemoglobin 33.1 pg (27-33); Mean Corpuscular Volume 98.5 fl (82-101); Nucleated Red Blood Cells % 0 %; Platelet Count 156 10^3/cmm (157-399); Red Blood Count 4.65 10^6/uL (3.85-5.65); White Blood Count 10.94 10^3/uL (3.29-11.43)
[2025-01-29] MEDS: ceFAZolin 2,000 MG in sodium chloride 0.9% (plus) 50 ML 100 MG IV (06:20)
[2025-01-29 06:24] VITALS: RESP 16; O2SAT 95
[2025-01-29 06:25] LABS: Anion Gap 15.7 (5-19); Blood Urea Nitrogen 16 mg/dL (8-23); Calcium 8.4 mg/dL (8.5-10.5); Carbon Dioxide 23 mmol/L (22-29); Chloride 102 mmol/L (98-107); Creatinine Clr Calc Pharmacy 102.7478; Glucose 113 mg/dL (65-115); Osmolality Calculated 286 mOsm/kg (285-295); Potassium 3.7 mmol/L (3.5-5.1); Sodium 137 mmol/L (136-145)
[2025-01-29 07:15] VITALS: BP 155/80; PULSE 82; RESP 17; TEMP 37.1; O2SAT 97
[2025-01-29 08:58] VITALS: BMI 30.5
--- NOTE | 2025-01-29 08:59 | P.PN_ITS ---
Subjective 2 Subjective: He is doing well this morning. He is nasal and oral mucosa somewhat dry from the oxygen. Not having cough. He is able to wean down on oxygen flow down to 2 L initially and then down to room air. Vitals/I&O/Wt Last Vital Signs Temp 98.8 F 01/29/25 07:15 Pulse 82 01/29/25 07:15 Resp 17 01/29/25 07:15 BP 155/80 01/29/25 07:15 Pulse Ox 97 01/29/25 07:15 O2 Del Method Nasal Cannula 01/29/25 07:15 O2 Flow Rate 3 01/29/25 07:15 01/28/25 01/29/25 01/29/25 22:59 06:59 14:59 Intake Total 800 / 2150 1000 / 3150 Output Total 675 / 1150 Balance 125 / 1000 1000 / 2000 Weight last 48 hrs Weight 107.955 kg Weight 104.326 kg Weight 104.326 kg Physical Exam 2 Const: COMMON NORMALS: patient oriented x3 and alert GENERAL APPEARANCE: c ooperative ORIENTATION/CONSCIOUSNESS: Yes awake HENMT: COMMON NORMALS: oropharynx normal Neck/C-Spine: COMMON NORMALS: no JVD Resp: COMMON NORMALS: normal respiratory effort and clear to auscultation bilaterally AUSCULTATION: clear to auscultation bilaterally Cardio: COMMON NORMALS: no JVD, regular rhythm, S1 normal heart sound present, S2 normal heart sound present and No murmurs present (Cardio) RHYTHM: regular rhythm HEART SOUNDS: S1 normal heart sound present and S2 normal heart sound present GI: COMMON NORMALS: Normal to inspection, nondistended, normoactive bowel sounds present, Soft to palpation and non-tender PALPATION: Yes Soft to palpation Extremity: COMMON NORMALS: no joint enlargement and no pedal edema N ARRATIVE EXTREMITY EXAM: Right shoulder immobilizer. Mini drain in place. Neuro: COMMON NORMALS: patient oriented x3 and moves all extremities S ENSORIUM/ORIENTATION: Yes alert Skin: COMMON NORMALS: no rashes or lesions noted GENERAL SKIN EXAM: no rashes or lesions noted Urinary Catheter Management: Mazariegos: Cath Placed During This Visit: yes Urinary Catheter Date of Insertion: 01/28/25 Urinary Catheter Time of Insertion: 07:21 Data 01/29/25 05:09 01/29/25 05:09 A&P Assessment and plan 1. S/p reverse total shoulder arthroplasty: Pending orthopedic reassessment. Reviewed blood counts, without any appreciable anemia. Afebrile, without leukocytosis. Being assessed by PT. Has weaned off oxygen. Okay for discharge from hospitalist standpoint with follow-up with PCP. Uneventful procedure with estimated blood loss 75 mL; recovering in PACU. Discussed with orthopedic surgeon, reviewed orthopedic note, shoulder x-ray. Preop evaluation. - Reassessment with orthopedics (Dr. Weir) - Consideration for discharge home tomorrow - Continue pain control - DC IVF 2. Hypoxia: Weaned down initially to 2 L nasal cannula, saturating still in mid 90s, later on able to wean off to room air including with exertion while working with PT. Anticipated discharge home, okay from hospital standpoint with follow-up with PCP. Postoperatively oxygen saturation 90% on 3 L nasal cannula; drops to 79% when oxygen removed; patient denies respiratory symptoms. Reviewed vitals, CBC. Requesting chest x-ray. Reviewed chemistry. Denies any prior lung disease. Is a never smoker. Denies SARAH. Had received small bolus of fluid. Discussed possibility of microaspiration, bronchitis/pneumonitis. OR staff reporting he has been having some phlegm production, although he denies any recent respiratory issues or productive cough. Some atelectasis noted on chest x-ray, could not exclude pneumonia, but otherwise afebrile, without leukocytosis, without phlegm production, today is feeling better, weaning off oxygen, low likelihood of pneumonia. Needs to follow-up with PCP for reassessment. -Encouraged incentive spirometer 3. Diabetes: Diabetes managed with oral hypoglycemics at home; inpatient approach discussed. Reviewed A1c noted 7.1. - While in hospital, use sliding scale insulin - Consistent carbohydrate diet - Monitor [id number] glucose - Resume oral hypoglycemics at discharge 4. Dysuria: Postoperatively, without persistence. Plan: Hypertension : History of hypertension; lisinopril discontinued due to cough; currently on amlodipine. - Monitor blood pressures - Continue amlodipine Hyperlipidemia : On statin therapy at home. - Continue statin for hyperlipidemia (rosuvastatin) Follow-up : Post-operative planning and discharge considerations. - Extensive plan for return home tomorrow as clinically appropriate PDMP PDMP Reviewed: Not Reviewed Attestations 2 Medical Necessity Statement*: Anticipated return home. Diagnoses S/p reverse total shoulder arthroplasty Z96.619 Hypoxia R09.02 Diabetes E11.9 Dysuria R30.0
[2025-01-29] MEDS: HYDROmorphone 0.5 MG/0.5 ML INJ IVP (10:07)
[2025-01-29 11:04] VITALS: BP 139/82; PULSE 77; RESP 16; TEMP 37; O2SAT 93
[2025-01-29 12:22] VITALS: RESP 17
--- NOTE | 2025-01-29 15:14 | PM.DCS ---
Discharge Providers Date of Admission: 01/28/25 14:19 Date of Discharge: January 29, 2025 Attending Provider at Admission: Eder Elliott DO Attending Provider at Discharge: Eder Elliott DO Consults: Dr. Cornelius?hospitalist Primary Care Provider: MIHAI Mendoza Diagnoses at Discharge Discharge Diagnosis 1. S/p reverse total shoulder arthroplasty: 2. Hypoxia: 3. Diabetes: 4. Dysuria: Reason for Visit Reason for Visit: M12.811 Brief History: Status post right reverse total shoulder arthroplasty Hospital Course Hospital Course Patient was brought to the preoperative area with plan for right reverse total shoulder arthroplasty seen evaluated by anesthesia once cleared for surgery taken back to the operative suite patient underwent anesthesia per anesthesia department pt underwent a right reverse total shoulder arthroplasty without complications. Pt was subsequently taken to PACU in stable condition recovering well in PACU and was admitted to the floor postoperatively. Pt received appropriate postoperative pain medication DVT prophylaxis, perioperative antibiotics. Pt was instructed nonweightbearing to right upper extremity maintain sling work with PT/OT. Strict no range of motion the right shoulder at this time. Pt progressed well postoperatively labs were monitored daily dressing was changed as needed maintain krystyna dressing with good seal throughout the hospitalization. Internal medicine was on board to assist with medical management. Patient subsequently on postoperative day 1 was determined that patient was stable for discharge from an orthopedic standpoint. Patient was subsequently discharged home. Given appropriate discharge instructions as well as pain medication DVT prophylaxis. Follow-up in the orthopedic office in 2 weeks. Physical Exam Narrative: Examination right shoulder: Examination of the right shoulder sling in place Krystyna dressing on in place with good seal no evidence of saturation normal postoperative swelling and tenderness to palpation about the right shoulder. This block is worn off patient endorses sensation intact light touch distally at the radial/ulnar/median nerve distribution as well as axillary motor and sensory is intact as patient is able to fire rear deltoid on examination. Patient is able to flex the elbow as well as extend the elbow. Patient is able to form AIN/PIN/radial/ulnar/median nerve motor intact. Distal pulses palpable compartment soft compressible Urinary Catheter Management: Mazariegos: Cath Placed During This Visit: yes Urinary Catheter Date of Insertion: 01/28/25 Urinary Catheter Time of Insertion: 07:21 Discharge Data Studies Completed and Pending Completed Studies During Hospitalization Category Date Time Status CXRP [XR chest 1V portable [id number]] Routine Exams 01/28/25 10:52 Completed XR shoulder RT min 2V* [id number] Routine Exams 01/28/25 10:19 Completed Pending at discharge Category Date Time Status Basic Metabolic Panel AM LABS Lab 01/30/25 04:00 Ordered Basic Metabolic Panel AM LABS Lab 01/31/25 04:00 Ordered Basic Metabolic Panel Routine Lab 01/28/25 06:17 Uncollected Complete Blood Count w/Auto AM LABS Lab 01/30/25 04:00 Ordered Complete Blood Count w/Auto AM LABS Lab 01/31/25 04:00 Ordered Radiology Impressions Shoulder X-Ray 01/28/25 10:19 IMPRESSION: Right reverse total shoulder arthroplasty without apparent complication. Chest X-Ray 01/28/25 10:52 IMPRESSION: Bilateral pulmonary opacities could represent atelectasis, though infiltrate is not excluded in the correct clinical setting. Laboratory Results WBC 10.94 10^3/uL (3.29-11.43) 01/29/25 05:09 RBC 4.65 10^6/uL (3.85-5.65) 01/29/25 05:09 Hgb 15.40 g/dL (11.27-16.99) 01/29/25 05:09 Hct 45.8 % (37-53) 01/29/25 05:09 MCV 98.5 fl (82-101) 01/29/25 05:09 MCH 33.1 pg (27-33) H 01/29/25 05:09 MCHC 33.6 g/dL (30-55) 01/29/25 05:09 RDW 13.1 % (12.1-15.1) 01/29/25 05:09 Plt Count 156 10^3/cmm (157-399) L 01/29/25 05:09 MPV 10.4 fL (7.4-10.4) 01/29/25 05:09 Neut % (Auto) 76.4 % 01/29/25 05:09 Lymph % (Auto) 12.7 % 01/29/25 05:09 [place] % (Auto) 9.5 % 01/29/25 05:09 Eos % (Auto) 0.7 % 01/29/25 05:09 Baso % (Auto) 0.3 % 01/29/25 05:09 Neut # (Auto) 8.36 10^3/uL (1.8-7.7) H 01/29/25 05:09 Lymph # (Auto) 1.4 10^3/uL (0.8-4.8) 01/29/25 05:09 [place] # (Auto) 1.0 10^3/uL (0.2-0.9) H 01/29/25 05:09 Eos # (Auto) 0.1 10^3/uL (0.0-0.8) 01/29/25 05:09 Baso # (Auto) 0.0 10^3/uL (0.0-0.1) 01/29/25 05:09 Nucleated RBC % (auto) 0 % 01/29/25 05:09 Nucleated RBCs # 0.0 /100WBC 01/29/25 05:09 Sodium 137 mmol/L (136-145) 01/29/25 05:09 Potassium 3.7 mmol/L (3.5-5.1) 01/29/25 05:09 Chloride 102 mmol/L (98-107) 01/29/25 05:09 Carbon Dioxide 23 mmol/L (22-29) 01/29/25 05:09 Anion Gap 15.7 (5-19) 01/29/25 05:09 BUN 16 mg/dL (8-23) 01/29/25 05:09 Creatinine 0.7 mg/dL (0.7-1.2) 01/29/25 05:09 GFR Calculation Not Reportable 01/29/25 05:09 Glucose 113 mg/dL (65-115) 01/29/25 05:09 POC Glucose 146 mg/dL (70-110) H 01/29/25 11:01 Calculated Osmolality 286 mOsm/kg (285-295) 01/29/25 05:09 Calcium 8.4 mg/dL (8.5-10.5) L 01/29/25 05:09 Blood Type O Positive 01/28/25 06:20 Rho(D) Type Rh positive 01/28/25 06:20 Antibody Screen Negative 01/28/25 06:20 Vitals Last Vital Signs Temp 98.6 F 01/29/25 11:04 Pulse 77 01/29/25 11:04 Resp 17 01/29/25 12:22 BP 139/82 01/29/25 11:04 Pulse Ox 93 11/07/25 11:04 O2 Del Method Room Air 01/29/25 11:04 O2 Flow Rate 3 01/29/25 07:15 Discharge Plan Discharge Patient Disposition: Home Condition: Stable Prescriptions: New aspirin 325 mg tablet 325 mg PO DAILY 14 Days Qty: 14 0RF oxycodone 5 mg tablet 10 mg PO Q6H PRN (Reason: pain) 7 Days Qty: 56 0RF Rx Instructions: 1 tab moderate pain 2 tabs severe pain amoxicillin-pot clavulanate [Augmentin] 500-125 mg tablet 1 tab PO BID 7 Days Qty: 14 0RF cyclobenzaprine 10 mg tablet 10 mg PO TID PRN (Reason: muscle spasm) 7 Days Qty: 21 0RF Continued hydrocodone-acetaminophen 10-325 mg tablet 1 tab PO Q6H PRN (Reason: pain) 5 Days Qty: 20 0RF morphine 15 mg tablet 15 mg PO BID PRN (Reason: Pain) amlodipine 5 mg tablet 5 mg PO DAILY Qty: 30 1RF testosterone cypionate 200 mg/mL oil 200 mg IM Q14D Qty: 2 3RF rosuvastatin 10 mg tablet 10 mg PO DAILY Qty: 90 0RF tamsulosin 0.4 mg capsule 0.4 mg PO BID Rx Instructions: TAKE ONE CAPSULE BY MOUTH TWICE DAILY pantoprazole 40 mg tablet,delayed release (DR/EC) 40 mg PO PRN PRN (Reason: Heartburn) Rx Instructions: TAKE 1 TABLET BY MOUTH ONCE DAILY metformin 1,000 mg tablet 1,000 mg PO BID Rx Instructions: TAKE ONE TABLET BY MOUTH TWICE DAILY Jardiance 10 mg tablet 10 mg PO DAILY Rx Instructions: TAKE 1 TABLET BY MOUTH ONCE DAILY venlafaxine 75 mg capsule,extended release 24hr 75 mg PO DAILY Rx Instructions: TAKE 1 CAPSULE BY MOUTH ONCE DAILY EVERY MORNING triamcinolone acetonide 0.1 % cream 1 applic topical BID PRN (Reason: Skin Irritation) 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 OK for DC: Orthopedics and Hospitalist Discharge Order = DC NOW: Discharge Order (Routine); Ordered 01/29/25 Ordered By: Eder Elliott Referrals: Sandrita Hensley FNP [Primary Care Provider, Nurse Practitioner] - 02/02/25 11:00 am Referral Note: Eder Elliott DO [Physician, Orthopedics] - 11/21/25 8:15 am Discharge Diet: Regular Discharge Activity: Limit activity as instructed Patient Instructions: Cyclobenzaprine (By mouth), Amoxicillin/Clavulanate Potassium (By mouth), Oxycodone, Rapid Release (By mouth), Ondansetron (By mouth), Acute Wound Care (DC), Shoulder Arthroplasty (DC), Opioid Safety, Post Anesthesia Care, Patient Portal & Deandre Instructions Activity Restrictions/Additional Instructions: Orthopedic discharge instructions: Keep dressing on and intact. You have a Krystyna dressing with battery pack on it. The battery pack lasts for about 5 to 7 days and when battery goes you can remove dressing. If you are going to shower detach battery pack from dressing and then reattach after shower. Leave the krystyna incisional dressing on for the 2 weeks until follow-up. We will take it off at the orthopedic office 2-week follow-up visit Keep arm in shoulder sling for the next 6 weeks. To prevent frozen shoulder you can take arm out of sling and let it hang down and do pendulum swings. Okay to come out of sling just for elbow only range of motion to prevent getting stiff No active Range of motion right shoulder. No weight-bear to the operative extremity. Ice and elevate as needed for pain and swelling Take pain medication as prescribed Take antinausea medication as needed Take muscle relaxer as needed for muscle spasms, recommend taking at night Take antibiotic as prescribed for infection prevention Take aspirin as prescribed for blood clot prevention Make sure to supplement with stool softener as narcotic medication can cause constipation May supplement for pain with Tylenol [id number] as needed(1000 mg every 8 hours-do not exceed more than 3000mg in 24-hour period) No baths or soaks Follow-up in the orthopedic office in 2 weeks Contact the office for any questions or concerns Follow-up with your primary doctor for reassessment of oxygenation. Continue to use incentive spirometer due to some atelectasis (question of lung tissue) to help open up your lungs and prevent pneumonia. Continue to monitor and optimize your blood glucose control, target blood glucose 100-150. Continue to monitor and optimize blood pressure control, target blood pressures 120/80 or less. Discharge Attestations Time Spent in Discharge Care*: less than 30 min Quality Metrics Clinical Quality Measures [ No reported AMI, CVA or VTE this stay] Coding Level of Care Code Acute Code for Chg Fwd Diagnoses S/p reverse total shoulder arthroplasty Z96.619 Hypoxia R09.02 Diabetes E11.9 Dysuria R30.0 Time Spent (min) 25
== END 2025-01-29 16:25 | disposition home or self-care (01) ==
LOC: MEDSURG 14:21
PROVIDERS: Physician Assistant; Admitting Provider Student in an Organized Health Care Education/Training Program; PCP Nurse Practitioner; Visit Provider Student in an Organized Health Care Education/Training Program
PROC: (CPT 23472; principal; 2025-01-28 07:00)
DX: M19.011 Primary osteoarthritis, right shoulder (principal); E11.9 Type 2 diabetes mellitus without complications; R30.0 Dysuria; Z79.84 Long term (current) use of oral hypoglycemic drugs; K21.9 Gastro-esophageal reflux disease without esophagitis; Z79.891 Long term (current) use of opiate analgesic; E78.5 Hyperlipidemia, unspecified; I10 Essential (primary) hypertension
CPT/HCPCS: 64415; 23472; 36415; 36416; 51702; 71045; 73030; 80048; 82962; 85025; 86850; 86900; 96372; 97161; 97165; 97530; C1713; C1776; G0378; J0131; J0690; J1100; J1171; J1815; J1885; J2371; J2405; J2704; J2710; J3010; J3373; J3490; J7030; J7120; J9999

== ENCOUNTER → 2025-02-10 09:11 | Outpatient (BNVA) | payer MEDICARE, OTHER, SELFPAY | PROVIDERS: PCP Nurse Practitioner; Visit Provider Physician Assistant | DX: Z98.890 Other specified postprocedural states (principal); Z96.619 Presence of unspecified artificial shoulder joint | CPT/HCPCS: 73030; 99024 ==

== ENCOUNTER → 2025-02-17 09:04 | Outpatient (BNVA) | payer MEDICARE, OTHER, SELFPAY | PROVIDERS: PCP Nurse Practitioner; Visit Provider Student in an Organized Health Care Education/Training Program | DX: Z96.611 Presence of right artificial shoulder joint (principal) | CPT/HCPCS: 73030; 99024 ==

== ENCOUNTER → 2025-03-10 11:09 | Outpatient (BNVA) | payer MEDICARE, OTHER, SELFPAY | PROVIDERS: PCP Nurse Practitioner; Visit Provider Physician Assistant | DX: Z98.890 Other specified postprocedural states (principal); Z96.619 Presence of unspecified artificial shoulder joint | CPT/HCPCS: 73030; 99024 ==